=== PATIENT | male | born 1985 | race Caucasian/White ===

== ENCOUNTER 2020-10-09 15:18 | Emergency (ER) | payer OTHER, SELFPAY ==
[2020-10-09] VITALS (9 sets, daily range): BP systolic 110–121; BP diastolic 80–93; PULSE 63–83; RESP 16–20; TEMP 36.5–36.8; O2SAT 95–100
--- NOTE | ~2020-10-09 | XR_ITS ---
EXAMINATION: XR chest 2V EXAM DATE: 10/09/2020 15:46 INDICATION: Shortness of breath with exertion. On new medicine. TECHNIQUE: Frontal and lateral projections of the chest obtained and reviewed. There is no prior tj dy for comparison. FINDINGS: The lungs are clear. There are no pleural effusions. The cardiomediastinal silhouette is within normal limits. There is no pneumothorax suspected. The bones and soft tissues are unremarkab le. IMPRESSION: Unremarkable chest x-ray exam. Reviewed, dictated and finalized at location B.
--- NOTE | 2020-10-09 15:34 | ECG_ITS ---
Measurements Intervals [place] Rate: 74 P: 65 LA: 152 QRS: 56 QRSD: 104 T: 61 QT: 365 QTc: 405 Interpretive Statements SINUS RHYTHM WITH SINUS ARRHYTHMIA BASELINE ARTIFACT- I, III NORMAL ECG Electronically Signed On 10-09-2020 15:44:18 CDT by Alonzo Argueta D.O.
--- NOTE | 2020-10-09 16:01 | ED.SOB ---
HPI - SOB/Dyspnea General Chief Complaint: Shortness of Breath/Dyspnea Stated Complaint: SOB x1 week Time Seen by Provider: 10/09/20 15:50 Source: patient, EMS and RN notes reviewed Mode of arrival: EMS Limitations: no limitations History of Present Illness HPI Narrative: Patient is a 35-year-old male who presents with shortness of breath that has been present now for the last 2 weeks or more noting that with any exertion or activity he gets short of breath patient denies URI symptoms was seen at an urgent care today and referred to emergency department for further evaluation patient on arrival does not appear distressed he is not in pain Related Data Allergies Allergy/AdvReac Type Severity Reaction Status Date / Time No Known Allergies Allergy Verified 10/09/20 16:34 Review of Systems Review of Systems: All systems reviewed & are unremarkable except as noted in HPI and below PMFSH Past Medical History Medical History Hepatitis C Social History Social History (Updated 10/09/20 @ 17:47 by Jacob Daigle PA-C) Smoking status: Current every day smoker Exam Narrative: Exam Narrative: GENERAL: Well-appearing, well-nourished, and in no acute distress. HEAD: Normocephalic, atraumatic. EYES: PERRLA and EOMI. ENT: Nares clear, no rhinorrhea or epistaxis. Mucous membranes moist. CHEST: Clear to auscultation. No respiratory distress. No wheezes rales or rhonchi HEART: Regular rate and rhythm. No murmur heard. EXTREMITIES: Normal range of motion. No edema. SKIN: Warm, dry, no rash. NEURO: No focal deficits. Alert and oriented x3. Cranial nerves II through XII grossly intact PSYCH: Normal mood and affect. Course Course Emergency Course: Patient presented with shortness of breath and lightheadedness dizziness with position change in the room no distress patient with no high risk changes will be discharged home with outpatient follow-up advised to stay out of the heat as much as possible and to hydrate also advised to discontinue smoking. No hypoxemia no pneumonia Vital Signs Vital signs: Vital Signs Temperature 97.7 F 10/09/20 15:38 Pulse Rate 63 10/09/20 15:38 Respiratory Rate 16 10/09/20 15:38 Blood Pressure 121/86 10/09/20 15:38 Pulse Oximetry 97 10/09/20 15:38 Temperature 98.0 F 10/09/20 16:27 Pulse Rate 78 10/09/20 16:27 Respiratory Rate 18 10/09/20 16:27 Blood Pressure 117/83 10/09/20 16:27 Pulse Oximetry 98 10/09/20 16:27 MDM - SOB/Dyspnea MDM Narrative Medical decision making narrative: Patient in the room no distress resting comfortably afebrile nontoxic-appearing felt appropriate for outpatient reevaluation agreeing to follow-up as instructed or to return if symptoms worsen or concerns patient is afebrile nontoxic-appearing no distress Lab Data Result diagrams: 10/09/20 16:26 10/09/20 16:26 Labs: Lab Results 10/09/20 10/09/20 10/09/20 Range/Units 16:26 16:26 16:26 WBC 9.0 (4.5-10.0) K/mm3 RBC 5.06 (4.6-6.20) M/mm3 Hgb 14.6 (14.0-18.0) g/dL Hct 43.3 (42.0-52.0) % MCV 85.6 (80-100) fl MCH 28.9 (26-34) pg MCHC 33.7 (32-36) g/dl RDW 13.2 (11.5-14.5) % Plt Count 193 (150-375) k/mm3 MPV 10.3 (7.4-10.4) fl Immature Gran % (Auto) 0.3 (0-0.5) % Neut % (Auto) 58.3 (45.5-73.1) % Lymph % (Auto) 31.5 (18.3-44.2) % [place] % (Auto) 8.6 H (2.6-8.5) % Eos % (Auto) 1.1 (0-4.4) % Baso % (Auto) 0.2 (0.2-1.2) % Lymph # (Auto) 2.83 (0.9-3.2) K/mm3 [place] # (Auto) 0.8 H (0.1-0.6) K/mm3 Eos # (Auto) 0.1 (0-0.3) K/mm3 Baso # (Auto) 0.0 (0.0-0.1) K/mm3 Abs Immat Gran (auto) 0.03 (0.00-0.031) K/mm3 Absolute Neuts (auto) 5.2 (1.3-6.7) K/mm3 Absolute Nucleated RBC 0.0 (0.0-0.012) K/mm3 Nucleated RBC % 0.0 (0.0-0.2) % PT 13.4 (11.1-14.7) Seconds INR 1.0 APTT 25.2 (2
[2020-10-09] MEDS: ASPIRIN 81 MG CHEWABLE TABLET 324 MG PO (16:33)
[2020-10-09 16:36] LABS: Basophils Percent Auto 0.2 % (0.2-1.2); Eosinophils Absolute Auto 0.1 K/mm3 (0-0.3); Eosinophils Percent Auto 1.1 % (0-4.4); Hematocrit 43.3 % (42.0-52.0); Hemoglobin 14.6 g/dL (14.0-18.0); Immature Granulocyte Absolute 0.03 K/mm3 (0.00-0.031); Immature Granulocyte Percent A 0.3 % (0-0.5); Lymphocytes Absolute Auto 2.83 K/mm3 (0.9-3.2); Lymphocytes Percent Auto 31.5 % (18.3-44.2); Mean Corpuscular HGB Conc 33.7 g/dl (32-36); Mean Corpuscular Hemoglobin 28.9 pg (26-34); Mean Corpuscular Volume 85.6 fl (80-100); Mean Platelet Volume 10.3 fl (7.4-10.4); Monocytes Absolute Auto 0.8 K/mm3 (0.1-0.6); Monocytes Percent Auto 8.6 % (2.6-8.5); Neutrophils Absolute Auto 5.2 K/mm3 (1.3-6.7); Neutrophils Percent Auto 58.3 % (45.5-73.1); Platelet Count Result 193 k/mm3 (150-375); Red Blood Count 5.06 M/mm3 (4.6-6.20); Red Cell Distribution Width 13.2 % (11.5-14.5)
[2020-10-09] MEDS: SODIUM CHLORIDE 0.9% IV 1,000 ML 999 ML IV CONT (16:40)
[2020-10-09 16:49] LABS: Alanine Aminotransferase 38 U/L (4-50); Albumin Level 4.6 g/dL (3.5-5.1); Alkaline Phosphatase 66 U/L (38-126); Anion Gap 8 mmol/L (8-16); Aspartate Amino Transferase 35 U/L (17-59); Bilirubin,Total 0.6 mg/dL (0.2-1.3); Blood Urea Nitrogen 18 mg/dL (9-20); Calcium 9.2 mg/dL (8.4-10.2); Carbon Dioxide 30 mmol/L (22-30); Chloride 102 mmol/L (98-107); Estimated CRCL calculation 104 ml/min; Estimated Glomerular Filt Rate > 60; Glucose 92 mg/dL (75-110); Lipase 59 U/L (23-300); Potassium 4.2 mmol/L (3.4-5.0); Sodium 140 mmol/L (137-145)
[2020-10-09 16:51] LABS: Prothrombin Time 13.4 Seconds (11.1-14.7)
[2020-10-09 16:52] LABS: Partial Thromboplastin Time 25.2 SECONDS (22.3-36.8)
[2020-10-09 17:00] LABS: Troponin I < 0.012 ng/mL (0.000-0.034)
== END 2020-10-09 18:10 | disposition home or self-care (01) ==
PROVIDERS: Emergency Provider Emergency Medicine
DX: R06.00 Dyspnea, unspecified (principal); F17.200 Nicotine dependence, unspecified, uncomplicated
CPT/HCPCS: 36415; 71046; 80048; 80076; 83690; 84484; 85025; 85610; 85730; 93005; 96360; 99284; A9270; J7030

== ENCOUNTER 2021-01-08 08:46 | Emergency (ER) | payer OTHER, SELFPAY ==
--- NOTE | ~2021-01-08 | XR_ITS ---
EXAMINATION: XR hand LT min 3V DATE: 01/08/2021 09:07 INDICATION: Left hand injury and pain. TECHNIQUE: 3 views of left hand were obtained. COMPARISON: None. FINDINGS: There is hyperextension of third and fourth proximal interphalangeal joints. There are nond isplaced stellate fractures of the [place] of third and fourth distal phalanges. Joint spaces are xochitl l. IMPRESSION: 1. Nondisplaced stellate fractures of the [place] of third and fourth distal phalanges. Reviewed, dictated and finalized at location A. IMPRESSION: 1. Nondisplaced stellate fractures of the [place] of third and fourth distal phal anges.
[2021-01-08 08:56] VITALS: BP 144/88; PULSE 83; RESP 18; TEMP 36.7; O2SAT 99
--- NOTE | 2021-01-08 09:24 | ED.UPPEXIN ---
HPI - Extremity Injury (Upper) General Chief Complaint: Extremity Injury, Upper Stated Complaint: Finger Injury Source: patient and RN notes reviewed Mode of arrival: ambulatory Limitations: no limitations History of Present Illness HPI narrative: Remy is a 35-year-old male patient here today with complaint of pain in the left third and fourth fingers of his left hand. Patient reported to nurse that he dropped a lid on his fingers last night at work. Patient refused to eat the same story to provider and stated multiple different stories. Patient rates pain pain a 10 out of 10. Patient has taken Motrin at home and used ice. Patient states the incident occurred last night. Related Data Home Medications Medication Instructions Recorded Confirmed No Home Medications 01/08/21 01/08/21 Allergies Allergy/AdvReac Type Severity Reaction Status Date / Time No Known Allergies Allergy Verified 10/09/20 16:34 Review of Systems Review of Systems: CONSTITUTIONAL: Denies body aches, fever, chills, or sweats. EYES: Denies visual changes, redness, or discharge. ENT: Denies rhinorrhea, congestion, sore throat, or otalgia. CARDIOVASCULAR: Denies chest pain, palpitations, or edema. RESPIRATORY: Denies cough or dyspnea. GASTROINTESTINAL: Denies abdominal pain, nausea, vomiting, or diarrhea. GENITOURINARY: Denies dysuria or hematuria. SKIN: Denies rash, itching, or wounds. MUSCULOSKELETAL: left 3/4 th finger pain. NEUROLOGIC: Denies headache, numbness, tingling, or weakness. PSYCH: Denies depression or anxiety. All systems reviewed & are unremarkable except as noted in HPI and below PMFSH Past Medical History Medical History Hepatitis C Social History Social History Smoking status: Current every day smoker Comments At time of signature, I have reviewed and agree with nursing past medical, surgical, social and family history unless otherwise noted. Please see nursing chart for further information. There is no relevant family history pertinent to the presenting complaint Exam Narrative: GENERAL: Well-appearing, well-nourished, and in no acute distress. HEAD: Normocephalic, atraumatic. EYES: EOMI. No redness or drainage. Conjunctivae normal. ENT: Mucous membranes pink and moist. Nares clear. No rhinorrhea. TMs normal bilaterally. Throat normal. Uvula midline. NECK: Normal AROM. Supple. No lymphadenopathy. CHEST: No respiratory distress. Clear to auscultation. HEART: Regular rate and rhythm. No murmur appreciated. Normal peripheral pulses. ABDOMEN: Soft, nontender, nondistended, normal active bowel sounds. MUSCULOSKELETAL: No bony tenderness. EXTREMITIES: edema to left 3/4th distal fingers, on 3/4 fingers. SKIN: Warm, dry, no rash. Capillary refill normal. Normal skin turgor.; sensation and movement intact to distal fingers. NEURO: No focal deficits. Alert and oriented x3. Gait steady. PSYCH: Normal affect. No signs of depression or anxiety. Course Vital Signs Vital signs: Vital Signs Temperature 36.7 C 01/08/21 08:56 Pulse Rate 83 01/08/21 08:56 Respiratory Rate 18 01/08/21 08:56 Blood Pressure 144/88 H 01/08/21 08:56 Pulse Oximetry 99 01/08/21 08:56 Temperature 36.7 C 01/08/21 08:56 Pulse Rate 83 01/08/21 08:56 Respiratory Rate 18 01/08/21 08:56 Blood Pressure 144/88 H 01/08/21 08:56 Pulse Oximetry 99 01/08/21 08:56 Reviewed. Pt has been instructed to follow up with his PCP regarding his elevated blood pressure today. MDM - Extremity Injury (Upper) MDM Narrative Medical decision making narrative: Left third and fourth distal phalanges fractures, non-displaced; subungual hematomas noted Differential Diagnosis Differential diagnosis: Likely finger sprain, dislocation of finger and fracture of hand Medical Records Attestation: I reviewed the patient's medical
== END 2021-01-08 09:35 | disposition home or self-care (01) ==
PROVIDERS: Emergency Provider Nurse Practitioner Family
DX: S62.664A Nondisplaced fracture of distal phalanx of right ring finger, initial encounter for closed fracture (principal); W20.8XXA Other cause of strike by thrown, projected or falling object, initial encounter; Y99.0 Civilian activity done for income or pay; Z86.19 Personal history of other infectious and parasitic diseases; F17.200 Nicotine dependence, unspecified, uncomplicated
CPT/HCPCS: 29130; 73130; 99214; G0463